=== PATIENT | female | born 1995 | race Caucasian/White ===

== ENCOUNTER 2018-05-08 05:48 | Inpatient (IN) | payer OTHER ==
[~2018-05-08] VITALS: Ht 152.4 cm; Wt 53.5 kg
[~2018-05-08 05:48] MED LIST: FERR-18 PO; PREN1TAB49 PO
--- NOTE | 2018-05-08 06:00 | TRIAGE ---
OB Triage Datetime Report Generated by CPN: 05/08/2018 06:00 Datetime: 05/08/2018 05:55 EGA: 39.2 Datetime: 05/08/2018 05:54 Time of Arrival: 05/08/2018 05:25 Arrived By: Wheelchair Arrived From: Home Chief Complaint: SROM AT 0430 Movement: Present Contractions: Occasional Time Contractions Began: 05/08/2018 04:30 Rupture of Membranes: Ruptured Vaginal Bleeding: None Vaginal Discharge: Denies Recent Sexual Intercouse: Denies Abdominal Trauma: Not Applicable Patient Complaints: Contractions Time Provider Notified: 05/08/2018 05:46 Provider Notified: LISA Initial Plan: EFM, SVE, ROM+, NITRAZINE Datetime: 05/08/2018 05:50 Membrane Status: Ruptured Datetime: 05/08/2018 05:46 Stage of : OB Triage Datetime: 05/08/2018 05:45 Stage of : OB Triage Vaginal Exam Dilatation (cms): 2.0 Effacement (%): 70 Station: -2 Exam By: JESUS OBREGON Membrane Status: Ruptured Membranes Ruptured Date/Time: 05/08/2018 04:30 (Annotations: PATIENT REPORTED) Membranes Rupture Method: Spontaneous Amniotic Fluid Color: Clear Amniotic Fluid Amount: Moderate Amniotic Fluid Odor: Normal Vaginal Bleeding: None Pool: Positive Nitrazine: Positive ROM Test Kit: SENT DOWN TO LAB Datetime: 05/08/2018 05:39 Stage of : OB Triage Temperature Route: Oral Datetime: 05/08/2018 05:30 Stage of : OB Triage Assessment Type: Triage Maternal Assessment Level of Consciousness: Fully Conscious Headache: Denies Blurred Vision: No Respiratory Effort: Unlabored; Regular Rhythm; Equal Expansion Breath Sounds, Left: Clear and Equal Breath Sounds, Right: Clear and Equal Nausea/Vomiting: Denies RUQ Epigastric Pain: Denies Facial Edema: None Fall Risk Assessment History of Falling: (0) No Secondary Diagnosis: (0) No Ambulatory Aid: (0) Bedrest/Nurse Assist IV Therapy: (0) No Gait: (0) Normal/Bedrest/Immobile Mental Status: (0) Oriented to Own Ability Fall Score: 0 Fall Risk Score Definition: No Risk: No action required
[2018-05-08] MEDS ORDERED: LACTATED RINGER'S 1,000 ML IV SCH (06:10)
[2018-05-08] MEDS ORDERED: LACTATED RINGER'S 1,000 ML IV PRN (06:10)
[2018-05-08 06:15] VITALS: Ht 152.4 cm; Wt 53.5 kg
[2018-05-08] MEDS ORDERED: CARBOPROST 250 MCG INJ IM PRN ×2 (06:30→14:00)
[2018-05-08] MEDS ORDERED: OXYTOCIN 30 UNITS/LR 500 ML IV PRN ×2 (06:30→14:00)
[2018-05-08] MEDS ORDERED: IBUPROFEN 600 MG TAB PO PRN (06:30)
[2018-05-08] MEDS ORDERED: LIDOCAINE 1% (MPF) 30 ML INJ INJ PRN (06:30)
[2018-05-08] MEDS ORDERED: AMPICILLIN 2 GM/NS (PMX) 100 ML IV ONE (06:30)
[2018-05-08] MEDS ORDERED: METHYLERGONOVINE 0.2 MG INJ IM PRN ×2 (06:30→14:00)
[2018-05-08] MEDS ORDERED: MISOPROSTOL 200 MCG TAB PR PRN ×2 (06:30→14:00)
[2018-05-08] MEDS ORDERED: BUTORPHANOL 2 MG INJ IV PRN (06:30)
[2018-05-08] MEDS ORDERED: OXYTOCIN 30 UNITS/LR 500 ML IV SCH ×2 (06:30)
[2018-05-08] MEDS ORDERED: KETOROLAC 30 MG INJ IV STA (09:56)
--- NOTE | 2018-05-08 10:01 | HP ---
Date/Time of Note Date/Time of Note DATE: 05/08/18 TIME: 09:58 OB - History Hx of Present Free Text/Dictation 22-year-old female 3 para 2 at 39+ weeks gestation admitted complaining of onset of labor pain and spontaneous rupture of membrane around 4:30 AM Chief Complaint: Spontaneous rupture of membrane in labor contractions Last Menstrual Period: August 06, 2017 Estimated Due Date: May 13, 2018 : 3 Para: 2 Care: Good Care Ultrasounds: Normal mid trimester US Medical Complications: None Past Family/Social History * Past Medical, Surgical, Family and Obstetric Histories reviewed from chart. Blood Type: O+ Rubella: immune RPR/VDRL: Negative GBS Status: Negative HBsAG: Negative OB Admission Exam Physical Exam HEENT: WNL Heart: Rhythm Normal Lungs: Clear, Equal Abdomen: WNL Extremities: Normal Reflexes: Normal Cervical Dilatation: 2cm Effacement: 50% Station: -2 Membranes: Ruptured Amniotic Fluid: Clear Heart Rate: 140's Accelerations: Accelerations Present Decelerations: No Decelerations Varibility: Moderate Contractions on Admission: < 5 Minutes Apart Date/Time Contractions Began: 05/08/2018 at 4:30 AM Frequency of Contractions: Every 3-4 minutes Duration: Over 5060 seconds Intensity: Mild Last 72 hours Lab Results CBC & BMP 05/08/18 06:30 OB Assessment/Plan Reason for admission: rupture of membranes Other Assessment: Term gestation Labor pains Spontaneous rupture of membrane Other plan: Proceed with spontaneous labor and vaginal delivery is anticipated FIORELLA QUISPE MD May 08, 2018 10:01
--- NOTE | 2018-05-08 10:03 | LDN ---
Date/Time of Note Date/Time of Note DATE: 05/08/18 TIME: 10:01 Delivery Summary Normal spontaneous vaginal delivery of a viable over intact perineum Weeks of Gestation 39 weeks plus Placenta Delivered: Spontaneously, Intact & Complete Meconium: none Episiotomy: No Perineal laceration: 0 Anesthesia type: None Estimated blood loss: 200 Sponge & Needle done & correct: Yes All needle counts correct: Yes Any foreign bodies felt in the: No Infant Delivery Information Sex Sex: female Apgars 1 Minute: 9 5 Minute: 9 Suctioning Nose & mouth suctioned at marcelle: Yes Delee suction performed: No Umbilical Cord Umbilical cord with: 3 Vessels Cord presentations: no nuchal cord Cord Blood was obtained: Yes Mother & Baby Disposition Disposition Mom & Baby to Maternity; Good: Yes (Mother and baby were recovered in good condition) Mom transferred to: Other (Maternity) Baby to NICU: No FIORELLA QUISPE MD May 08, 2018 10:03
[2018-05-08] MEDS ORDERED: AMPICILLIN 1 GM/NS (PMX) 50 ML IV SCH (10:30)
[2018-05-08 12:21] VITALS: BP 122/72; PULSE 68; RESP 18
[2018-05-08] MEDS ORDERED: DIBUCAINE 1% 30 GM OINT TOP PRN (14:00)
[2018-05-08] MEDS ORDERED: LANOLIN HPA 1 PKT TOP PRN (14:00)
[2018-05-08] MEDS ORDERED: ZOLPIDEM 5 MG TAB PO PRN (14:00)
[2018-05-08] MEDS ORDERED: BENZOCAINE 20% 56 ML SPRAY TOP PRN (14:00)
[2018-05-08] MEDS ORDERED: HYDROCODONE/APAP (5/325) TAB PO PRN ×2 (14:00)
[2018-05-08] MEDS ORDERED: WITCH HAZEL/GLYCERIN PAD PR PRN (14:00)
[2018-05-08 15:15] VITALS: BP 123/77; PULSE 99; RESP 18
[2018-05-08] MEDS: LACTATED RINGER'S 1,000 ML IV* SCH ×2 (15:15→17:43)
[2018-05-08] MEDS: IBUPROFEN 600 MG TAB PO SCH ×3 (15:15→23:54)
[2018-05-08 17:00] VITALS: BP 116/71; PULSE 99; RESP 14
[2018-05-08 20:30] VITALS: BP 107/55; PULSE 85; RESP 18
[2018-05-08] MEDS: SENNA/DOCUSATE NA (8.6MG/50MG) TAB PO SCH (20:34)
[2018-05-08] MEDS: MAGNESIUM HYDROXIDE 30ML CUP PO SCH (20:34)
[2018-05-09] VITALS: BP 101/59; PULSE 86; RESP 18
[2018-05-09 03:45] VITALS: BP 107/61; PULSE 81; RESP 18
[2018-05-09] MEDS: IBUPROFEN 600 MG TAB PO SCH ×3 (05:42→18:05)
[2018-05-09 07:50] VITALS: BP 99/58; PULSE 86; RESP 18
[2018-05-09] MEDS: MAGNESIUM HYDROXIDE 30ML CUP PO SCH ×2 (09:27→21:00)
[2018-05-09] MEDS: SENNA/DOCUSATE NA (8.6MG/50MG) TAB PO SCH ×2 (09:27→21:49)
[2018-05-09 16:15] VITALS: BP 105/64; PULSE 85
--- NOTE | 2018-05-09 16:42 | DS ---
Date/Time of Note Date/Time of Note Home today or next DATE: 05/09/18 TIME: 16:41 Obstetrical Discharge Record Final Diagnosis Final Diagnosis: Term delivered Other Final Diagnosis Status post vaginal delivery Vaginal Delivery Obstetrical Delivery: Spontaneous Condition on Discharge Physical Assessment Last Vitals: See nurse's notes Voiding: Yes Bowel Movement: Yes Breast: Soft, non-tender, Filling Fundus: Firm Episiotomy: Not applicable perineum is clean Calf Tenderness: No Patient Condition: Good FIORELLA QUISPE MD May 09, 2018 16:42
--- NOTE | 2018-05-09 16:47 | PD.PPDC ---
GALVANIZER Discharge Instruction Provider Information Physician Information 22-year-old female had vaginal delivery Diagnosis [id number] Final Diagnosis: [id number] Status post vaginal delivery Condition [id number] Patient Condition: [id number] Good Diet [id number] Diet: [id number] Resume Regular Diet Activity/Restrictions [id number] Activity: [id number] Normal Activity May Shower [id number] Restrictions: [id number] Nothing in the Vagina [id number] Return to Work or School: [id number] Jun 27, 2018 Follow-up Follow-up with Physician: 2, 4, Week/Weeks (In clinic) Return to clinic for [id number] OB Instructions: Alizw7s Breast Tenderness Depression Comment: Pelvic rest for 6 weeks FIORELLA QUISPE MD May 09, 2018 16:47
[2018-05-09] MEDS ORDERED: IBUP-1542 PO (16:48)
[2018-05-09 20:00] VITALS: BP 115/72; PULSE 88; RESP 18
[2018-05-10] MEDS: IBUPROFEN 600 MG TAB PO SCH ×3 (00:09→12:05)
[2018-05-10 04:00] VITALS: BP 105/60; PULSE 91; RESP 16
[2018-05-10 08:20] VITALS: BP 105/69; PULSE 80; RESP 19
[2018-05-10] MEDS ORDERED: VARICELLA VACCINE LIVE/PF 1,350 UNIT/0.5 ML ML SC* ONE (09:00)
[2018-05-10] MEDS ORDERED: MEASLES,MUMPS,RUBELLA VACCINE INJ SC* ONE (09:00)
[2018-05-10] MEDS: MAGNESIUM HYDROXIDE 30ML CUP PO SCH (09:00)
[2018-05-10] MEDS ORDERED: DIPHTH/TET/ACEL PERTUSS (ADULT) 0.5 ML VIAL IM* ONE (09:00)
[2018-05-10] MEDS: SENNA/DOCUSATE NA (8.6MG/50MG) TAB PO SCH (09:14)
== END 2018-05-10 15:37 | disposition home or self-care (01) | DRG 807 ==
LOC: OBT 05:48 → L-D 05:49 → OBT 05:51 → PP1 15:18
PROVIDERS: ADMIT Obstetrics & Gynecology; ATTEND Obstetrics & Gynecology
PROC: 10E0XZZ Delivery of Products of Conception, External Approach (ICD-10-PCS; principal; 2018-05-08)
PROC: 4A1HXCZ Monitoring of Products of Conception, Cardiac Rate, External Approach (ICD-10-PCS; 2018-05-08)
DX: O80 Encounter for full-term uncomplicated delivery (principal); Z37.0 Single live birth; Z3A.39 39 weeks gestation of pregnancy
CPT/HCPCS: 84112; 85025; 85610; 85730; 86592; 86850; 86900; 86901; 87340; 90716; G0463; J2590; J7120